=== PATIENT | female | born 1955 | race Caucasian/White ===

== ENCOUNTER → 2024-09-20 07:38 | Outpatient (CLI) | payer MEDICARE, OTHER, SELFPAY ==
[2024-09-20 08:24] LABS: Alanine Aminotransferase 60 IU/L (<35); Albumin 3.9 g/dL (3.5-5.0); Albumin Globulin Ratio 1.8 (1.0-2.8); Alkaline Phosphatase 44 U/L (38-126); Aspartate Aminotransferase 42 IU/L (14-36); Bilirubin Total 0.5 mg/dL (0.2-1.3); Blood Urea Nitrogen 19 mg/dL (7-17); Calcium 8.9 mg/dL (8.4-10.2); Carbon Dioxide 27 mmol/L (22-32); Chloride 105 mmol/L (98-107); Estimated Glomerular Filt Rate > 60 mL/min (>60); Globulin 2.2 g/dL (1.7-4.1); Glucose 92 mg/dL (70-99); HEMOLYSIS 21 (0-50); Potassium 4.5 mmol/L (3.4-5.1); Sodium 137 mmol/L (137-145); Total Protein 6.1 g/dL (6.3-8.2)
[2024-09-21 04:10] LABS: CRP, High Sensitivity 0.21 mg/L (0.00-3.00)
== END ==
PROVIDERS: PCP Family Medicine; Referring Provider Family Medicine; Visit Provider Family Medicine
DX: Z13.6 Encounter for screening for cardiovascular disorders (principal); Z82.49 Family history of ischemic heart disease and other diseases of the circulatory system
CPT/HCPCS: 36415; 80053; 80061; 83704; 86140

== ENCOUNTER → 2024-11-07 15:03 | Outpatient (CLI) | payer MEDICARE, OTHER, SELFPAY ==
[2024-11-07 16:45] LABS: Appearance Urine UA CLEAR; Bilirubin Urine UA NEGATIVE (NEGATIVE); Color Urine UA YELLOW; Glucose Urine UA NEGATIVE (Negative); Ketones Urine UA 1+ (NEGATIVE); Leukocyte Esterase Urine UA NEGATIVE (NEGATIVE); Nitrite Urine UA NEGATIVE (Negative); Protein Urine UA NEGATIVE (Negative); Specific Gravity Urine UA 1.020 (1.000-1.035); Urobilinogen Urine UA 1.0 E.U./dL (0.2)
[2024-11-07 17:01] LABS: pH Urine UA 6.5 (4.5-8.0)
[2024-11-07 17:13] LABS: Culture Indicated Urine Cult Not Indicated; Occult Blood Urine UA 3+ (Negative)
== END ==
PROVIDERS: PCP Family Medicine; Visit Provider Obstetrics & Gynecology Gynecology
DX: R32 Unspecified urinary incontinence (principal)
CPT/HCPCS: 81001

== ENCOUNTER → 2024-11-12 09:05 | Outpatient (CLI) | payer MEDICARE, OTHER, SELFPAY ==
--- NOTE | 2024-11-12 09:00 | DI.MG.S_ITS ---
MM screening mammo BI: 11/12/2024. BI-RADS: 1 CLINICAL: 69-year old female for bilateral screening mammogram. Tyrer-Cuzick lifetime risk of 6.3%. No personal or first-degree family history of breast cancer. PRIOR EXAMS 12/24/2022, outside films 02/19/2021, 09/13/2018, and 08/04/2017. MAMMOGRAPHY TECHNIQUE: 2D and 3D (tomosynthesis) digital mammographic views obtained, with additional images as needed for full coverage. Current study was also evaluated with a Computer Aided Detection (CAD) system. DENSITY C. The breasts are heterogeneously dense, which may obscure small masses. MAMMOGRAPHY FINDINGS Bilateral: No suspicious mass, asymmetry, microcalcification, or other abnormality seen. IMPRESSION: * No evidence of malignancy. RECOMMENDATIONS Bilateral * Annual screening mammography. OVERALL ASSESSMENT CATEGORY BI-RADS-1: Negative. The [employer] recommends annual screening mammography beginning at age 40 for women with average risk of breast cancer. ELECTRONICALLY SIGNED: Jennifer Johnson M.D. on 11/13/2024 at 12:58:04 AM PT Interpreting Station ID: [id number]
== END ==
LOC: MAMMO 09:07
PROVIDERS: PCP Family Medicine; Referring Provider Family Medicine; Visit Provider Family Medicine
DX: Z12.31 Encounter for screening mammogram for malignant neoplasm of breast (principal); R92.333 Mammographic heterogeneous density, bilateral breasts
CPT/HCPCS: 77063; 77067

== ENCOUNTER → 2024-12-19 09:48 | Outpatient (CLI) | payer MEDICARE, OTHER, SELFPAY ==
--- NOTE | 2024-12-19 09:50 | DI.RAD.S_ITS ---
PROCEDURE: XR DEXA AXIAL SKELETON INDICATIONS: screen COMPARISON: None. FINDINGS: Lumbar Spine: Bone mineral density 1.117 g/cm2, T score 0.9. Left Femoral Neck: Bone mineral density 0.701 g/cm2, T score -1.3. Left Hip: Bone mineral density 0.871 g/cm2, T score -0.6. Fracture Risk Calculation (when applicable): 10-year fracture risk of a major osteoporotic fracture 8.4 percent and of a hip fracture 0.9 percent. (T score greater or equal to -1.0 to: NORMAL) (T score from -1.1 to -2.4: OSTEOPENIA) (T score less than or equal to -2.5: OSTEOPOROSIS) IMPRESSION: Osteopenia--- recommend repeat DEXA in 2-3 years for reassessment. Follow-up guidelines as follows: Osteoporosis: Consider a repeat DEXA and Vertebral Fracture Assessment (VFA) exam in 2 years or sooner if medically necessary, to reassess this patient's status. Osteopenia: Consider a repeat DEXA in 2-3 years to reassess this patient's status, or if there is a new clinical indication. Normal: Consider a repeat DEXA in 5 years or sooner, or if there is a new clinical indication. All treatment decisions require clinical judgment and consideration of individual patient factors, including patient preferences, comorbidities, previous drug use, risk factors not captured in the FRAX model (e.g., frailty, falls, vitamin D deficiency, increased bone turnover, interval significant decline in bone density ) and possible under- or over-estimation of fracture risk by FRAX. In addition, the NOF Guide recommends that FDA-approved medical therapies be considered in postmenopausal women and men age >= 50 years with a: * Hip or vertebral (clinical or morphometric) fracture * T-score of <=-2.5 at the spine or hip * Ten-year fracture probability by FRAX of >= 3% for hip fracture or >=20% for major osteoporotic fracture. Dictated by: Johan Diaz M.D. on 12/19/2024 at 18:58 Approved by: Johan Diaz M.D. on 12/19/2024 at 18:59
== END ==
LOC: RAD 09:50
PROVIDERS: PCP Family Medicine; Referring Provider Family Medicine; Visit Provider Family Medicine
DX: M81.0 Age-related osteoporosis without current pathological fracture (principal)
CPT/HCPCS: 77080

== ENCOUNTER 2025-01-09 09:51 | Day surgery (SDC) | payer MEDICARE, OTHER, SELFPAY ==
--- NOTE | 2024-12-26 15:00 | P.HPOB_ITS ---
History of Present Illness History of Present Illness Narrative: Dorothy Llamas is a 69 year old female Date of procedure:?? 01-09-25 Preoperative diagnosis:? stress incontinence Planned Procedure:?? mid urethral sling, cystoscopy Postop Meds Tylenol 1000 mg, ?3 times a day? Motrin 400 mg 3 times a day Oycodone 5 mg,? take 1 pill every 4-6 hr as needed, # 5? Colace,? 1 pill BID, for constipation CC: Stress incontinence HPI: 69-year-old female who presents for evaluation of above complaint.?? She reports onset of symptoms 1-2 years ago.?? She considers this a? Moderate? problem. She reports worsening stress incontinence over the last 1-2 years. She reports several stress incontinence triggers, as listed below. She leaks 4 times per day. She has occasional urge incontinence. She does not use pads but has to change her clothes 1 to 2 times a day. Her job is very physically active and so she leaks lot because of that. She does not have hematuria or urinary tract infections no smoking. She has tried Kegel's, they do not work for her. She has tried oxybutynin XL 10 mg a day. This did not work. Exam below with a positive cough stress test confirming diagnosis of stress incontinence. She is interested in surgical treatment of her stress incontinence She had a prior surgery in [address] Kasia Nichlos at the [facility], [facility], open sacral colpopexy. This surgery is holding well for her. Recent pelvic exam demonstrated no prolapse. Today's exam shows no prolapse prior hyst -TOM CHANEY, with open ASC -x3 c-sec -0 Pelvic Floor Review of Systems: (HPI) Stress Urinary Incontinence symptoms (NO): 4 per day Triggers include:??? cough, sneeze, laugh, exercise, lifting, walking, standing ? Urge Incontinence symptoms (Urge UI): Occasional Triggers include:??? Full bladder with urge,?? running water,?? ? Pads: She wears no pads, changes clothes 1 or 2 times a day as noted above. Overactive Bladder symptoms (OAB):? ? Frequency:?? Every 2 hour Nocturia:?? Times 0 Urgency:?? No Prior incontinence treatment includes:? Medical:? Yes, failed Surgical:? No? Kegels:?? Yes Physical therapy:?No? Pessary:?No? Diet / Fluids: Fluid restriction:? No Excessive fluids:?No Pain symptoms:? Painful bladder:???No Dysuria:??? No Dyspareunia:? No Dysmenorrhea:? No Urinary Risk Factors UTI?s, recurrent:? No Hematuria:? No Kidney Stones:?No? Tobacco use:? No Pelvic Organ Prolapse (POP) symptoms:?? Bulge:?No Pressure and /or? Heaviness:?No Splint for defecation or voiding:???No Voiding dysfunction: Abnormal stream:? No Strain to void:? No Incomplete emptying:?No Voiding difficulty:? No Retention:??? No Bowel Function: Constipation:?No Strain to defecate:?No Fiber:?No Laxatives:?No Fecal Incontinence:? Liquid stool:? No Solid stool:?No?? Sexual function Sexually active: Not answered on questionnaire Incontinence with sex: Not answered on questionnaire ? General Review of Systems: Constitutional, CV, Endo, Musc-skel, Eyes, Cancer, Skin, Breast, GI, Heme/Lymph, Psych, Urinary, Neuro, Oncology Rep Specialist, Resp, Sexual:??? Pertinent positives listed above in HPI All others reviewed and negative. All reviewed on patient questionnaire.? . . PFSH Medical History Stress incontinence, female ADHD Toe pain (~2020) Chicken pox (~1963) Tinnitus (~2020) Hearing loss (~2020) Surgical History Anesthesia H/O right wrist surgery (~2017) History of hysterectomy (~2010) Family History Mother History of heart disease Mental health problem Tobacco & Substance Use Smoking Status: Never smoker alcohol intake: current (3 drinks per week ) substance use type: does not use Exam Vitals 11/07/2512:55 Height 5 ft 7 in Weight 142 lb 2 oz BMI 22.2 BP 115/72 Blood Pressure Location Lt radial Position Sitting Pulse 75 Pulse Source Monitor Temp 97.9 F Temp Source Temporal Artery Scan Pulse Oximetry (%) 95 Oxygen Delivery General: healthy, alert, coherent, no acute distress, cooperative, nontoxic Pulmonary: normal breathing, no distress Abdomen: soft, no mass, non-distended, no hernia, non-tender Skin: Scars on Abd: LT Vulva: Normal labia majora, labia minora, introitus, and clitoris, non-tender Urethra meatus: normal, no discharge Perineum: Normal, non-tender Urethra: No mass, non-tender Bladder: no mass, non-tender Vagina: No lesions, no discharge, mi atrophy, non-tender Prolapse none Levators: Non-tender, 2-3/ 5 kegel squeeze Hysterectomy Bimanual: no mass, no adnexal mass, non-tender Anus: No lesion, non-tender, no hemorrhoid Empty Cough Stress test: Positive PVR: 5 mL by catheter Urethral angle hypermobile: Yes POP-Q Exam: Aa: -2 Ba: -2 Ap: -2 Bp: -2 C: -9 D: Not applicable TVL: 11 GH: 2.5 PB: 3 Introitus size: 2 fingerbreadths Cystocele stage: 1.0 Rectocele stage: 1.0 Uterine/Vault Prolapse Stage: 0-1 Assessment & Plan (1) Stress incontinence, female: Assessment and Plan ? Patient counseled regarding above conditions.? Educational materials given to patient. 1. Stress Urinary Incontinence with urethral hypermobility:? This diagnosis was discussed with the patient. The etiology was explained. Treatment options were discussed including expectant management, pelvic floor exercises, pessary trial, and surgical intervention (mid-urethral sling, Gore urethropexy, P-V sling, Luly urethral plication, urethral bulking injection).? Risks and benefits of surgery were briefly outlined. We discussed that she is a candidate for a Midurethral Sling as treatment of her stress incontinence. Success rate of being dry from stress incontinence is about 80-85%; another 10-15% of patients are markedly improved but not cured;? 1-2% will fail, and 1-2% will need the sling cut because it is too tight.? The risk of temporary urinary retention requeiring temporary catheterization is about 15- 20%; risk of urinary retention requiring sling release procedure is about 1-2%, as noted above.? We discussed the small 1-3% of mesh erosion as well as the small risk of de kimberley urgency.? This procedure is not designed to treat Urge Incontinence symptoms; however, 30-50% of patients with overactive bladder/ urgency urinary incontinence will have improvement in these symptoms, in 30% these symptoms will stay the same, and in 20-30% these symptoms will worsen. she would like to proceed with surgery, we will schedule her for a sling see below for counseling Date of procedure:?? 01-09-25 Preoperative diagnosis:? stress incontinence Planned Procedure:?? mid urethral sling, cystoscopy Postop Meds Tylenol 1000 mg, ?3 times a day? Motrin 400 mg 3 times a day Oycodone 5 mg,? take 1 pill every 4-6 hr as needed, # 5? Colace,? 1 pill BID, for constipation Patient counseled extensively about the Risks, Benefits, and Alternatives to surgery.? She was offered the opportunity to ask any questions, and all questions were answered. ? Surgical Risks include: Bleeding, Hemorrhage, Transfusion, Infection (especially wound or bladder), Injury to adjacent organs (especially bladder, ureter, bowel, blood vessels, nerves), Postop or Chronic Pain, need for Reoperation, and Life-threatening event (especially M.I., CVA, PE, DVT). Procedure Risks include: Failure to Cure condition, Recurrence of condition months or years later, Urinary incontinence, Voiding dysfunction or Urinary Retention with prolonged catheter use, Poor wound healing, Erosions of any mesh or graft used, Dyspareunia, Vaginal scarring or narrowing, Need for additional surgery (immediate or delayed).? The expected cure and improvement and failure rates were discussed. Patient counseled to avoid the following for 6 weeks after surgery: (1) Impact sports (like running or jumping), walking and stairs OK (2) Lifting over 20# (3) Sexual intercourse No limits after 6 weeks. ? Good exercise tolerance, > 4 Mets. Her current medications were reviewed, and instructions given over which to use and which to discontinue before surgery.? Post-operative care instructions reviewed.? We discussed post-operative pain: Pain should be in the mild-moderate range, but can be moderate-severe for the first few days.?? Prescriptions will typically be given for (1) acetaminophen (Tylenol) and (2) non-steroidal anti-inflammatory drug (NSAID, like Motrin or Naprosyn), use both together, around the clock. Prescription will also be given for a (3) narcotic pain medication. Use the narcotic as needed, as a booster to the Tylenol and NSAID. You might need 0-4 narcotic pills a day typically. The narcotic will only be needed for a few days.?? Gradually use less of the narcotic, but continue the Tylenol and NSAID.? After a few days, the narcotic should no longer be needed, and only the Tyle nol and NSAID will be needed.? Warm packs or cold packs can also be used for pain.??Do not drive for as long as you are using the narcotic pain medication? - this should only be a few days.?? Constipation is associated with use of narcotic pain medications, and can be improved with use of a stool softener, or fiber, or a mild laxative.? If you are sent home from the hospital with a Rizzo Catheter in place:? please call the office on the day after surgery We will usually remove the catheter 2-4 days after surgery: a. You will perform an at home Rizzo catheter removal -or- b. You will come in to the office for a voiding trial, (For some unusual surgeries, we might leave the catheter in for up to 2 weeks, and then remove it.) Instructions for at home Rizzo catheter removal..... For at-home Rizzo catheter removal, this can be done on postop day 2 or 3 or 4, depending on various factors. 1. At 6 or 7 a.m., have the patient cut the Rizzo catheter with scissors, while standing in a shower or bath tub. a. Cut the catheter right in the middle of the tubing, about 6 inches from the body. b. The sterile water that is inside the Rizzo balloon will leak all over the floor of the shower or bath tub. This is expected. c. The catheter will either fall out of the urethra, or just gently pull on it and it will come out. 2. Now, the bladder will gradually fill up over the next few hours. 3. Go ahead and empty the bladder when you feel an urge to void. Please note how strong the urine stream is. a. If the urine stream is normal or close to normal, then everything is good to go. b. If the urine stream is slow or you can not void, then return to the clinic in the afternoon. We will place another Rizzo catheter. We will repeat the voiding trial in 3-4 days. All of her questions were answered Vipin Jerez MD UroGynecology & Pelvic Reconstructive Surgery [facility] Medical History (Updated 12/21/24 @ 13:19 by Ruby Knott DO) Hearing loss (~2020) Psoas syndrome Stress incontinence, female ADHD Toe pain (~2020) Chicken pox (~1963) Tinnitus (~2020) Surgical History (Updated 08/24/24 @ 17:25 by Ruby Knott DO) Anesthesia H/O right wrist surgery (~2017) History of hysterectomy (~2010) Family History (Updated 05/11/24 @ 18:00 by Eve Barksdale) Mother History of heart disease Mental health problem Social History alcohol intake: current (3 drinks per week ) substance use type: does not use Meds Home Medications and Allergies Home Medications ?Medication ?Instructions ?Recorded ?Confirmed ?Type magnesium glycinate 100 mg (as 200 mg PO DAILY 5 11/22/24 History glycinate) tablet estradiol 0.01% (0.1 mg/gram) 1 g vaginal 2XW #42.5 gr ams 11/22/24 11/22/24 Rx vaginal cream progesterone micronized 100 mg 100 - 400 mg (1 - 4 x 1 00 mg) PO 11/22/24 11/22/24 Rx capsule BEDTIME #90 caps estradiol 0.025 mg/24 hr weekly 1 patch transdermal QW NORTHWAY #4 ea 12/20/24 Rx transdermal patch Allergies Allergy/AdvReac Type Severity Reaction Status Date / Time No Known Drug Allergies Allergy Verified 11/07/24 13:53 Assessment & Plan Time-Based Coding :: [TOTAL MINUTES] spent with patient and on the chart (including review of chart, obtaining history, exam, reviewing outside data, placing orders, documenting exam and treatment plan, and counseling patient) on [DATE].
[2025-01-03 14:28] VITALS: BMI 22.2
[2025-01-09 11:32] VITALS: BP 119/72; PULSE 56; RESP 16; TEMP 36.3; O2SAT 99; BMI 22.6
[2025-01-09] MEDS: LACTATED RINGERS 1,000 ML 42 ML IV ×3 (11:45→15:04)
[2025-01-09] MEDS: ACETAMINOPHEN 325 MG TABLET 975 MG PO (13:57)
[2025-01-09] MEDS: GABAPENTIN 300 MG CAPSULE PO (13:57)
--- NOTE | 2025-01-09 13:57 | PM.PREOP ---
Pre-operative Note Interval Note History & Physical reviewed/Exam performed by Physician: Yes Changes to H&P: No
[2025-01-09] MEDS: LIDOCAINE 1% W/EPI 10ML 20 ML INJ (14:53)
--- NOTE | 2025-01-09 14:58 | SUR.OPER ---
Lithotomy on padded OR bed, head on pillow, arms secured on padded arm boards at <90 degrees abduction. Legs secured in padded yellow fins stirrups.
[2025-01-09 15:25] VITALS: BP 117/64; PULSE 71; RESP 15; TEMP 36.3; O2SAT 98
[2025-01-09 15:30] VITALS: BP 126/83; PULSE 73; RESP 13; O2SAT 96
--- NOTE | 2025-01-09 15:34 | P.OP_ITS ---
Operative Date/Time/Diagnoses Date of procedure: 01/09/25 Time of procedure: 15:00 Pre-op diagnosis: Stress incontinence Post-op diagnosis: same Procedure & Clinicians Procedure: Procedures Operation Date: 01/09/25 11:15 Actual Procedure Side Surgeon p mid urethral sling, cystoscopy Vipin Jerez MD Operative Notes Findings: Operative Note Surgeon:? Vipin Jerez MD Clinic Office Assistant:?? none Pre-Op Diagnosis:?? Stress incontinence Post-Op Diagnosis:?? Same? Procedure:?? TVT mid-urethral sling, cystoscopy Findings (brief): ? 1.? TVT sling placed at mid-urethra, tension-free ? 2.? Cystoscopy with normal bladder, ureters, urethra, no trocar injury Date of Surgery:? January 09, 2025 Complications:? None Specimens:? None Anesthesia Technique:?? General endotracheal Estimated Blood Loss (mls):? 25 Blood Replacement (mls):? None Drains:? None Condition:? Stable Procedure in detail: After consent was confirmed, the patient was taken to the operating room and placed under general anesthesia without incident.? Sequential compression devices were in place and active.? She received perioperative antibiotics.? She was then prepped and draped in the usual sterile fashion after placement in the dorsal lithotomy position using the Michael stirrups.? A Rizzo catheter was placed.? With the Rizzo catheter in place, the anterior vaginal mucosa beneath and lateral to the urethra was injected with 10-20 cc of? 0.5% lidocaine / epinephrine 1:200,000.? A 2-3 cm midline incision was made at the level of the midurethra with a scapel. Metzenbaum scissors were used to dissect the vagina from the urethra and then create tunnels beneath the vaginal mucosa up toward the pubic bone on each side.? A marking pen was used to harleen the skin just above the pubic bone and 2 cm from the midline bilaterally, and two small 8-10 mm incisions were made on the suprapubic skin.? The trocar was passed from the right vaginal tunnel, behind the pubic bone, to the right suprapubic incision, and this was repeated on the left side.? The Rizzo catheter was removed, and cystoscopy was performed with a 70 degree lens. There was no trocar injury, and the bladder, ureters, and urethra were normal.? The Rizzo catheter was reinserted.? The sling was pulled into position in a tension-free manner, and a Luly clamp was easily passed between the sling and the urethra.? The plastic sheaths were removed to anchor the sling, and tension was checked again. The ends of the sling were trimmed just below the skin, and the skin incisions were cleaned and closed with dermabond. The vaginal incision was closed with 2-0 vicryl in a running fashion. Sponge, needle and instrument count was correct.? The patient tolerated the procedure well and was taken to the recovery room in stable condition. Vipin Jerez MD UroGynecology & Pelvic Reconstructive Surgery [place], [place] Applied: implant(s) (tvt sling )
[2025-01-09 15:35] VITALS: BP 122/67; PULSE 67; RESP 12; O2SAT 96
[2025-01-09 15:40] VITALS: BP 122/66; PULSE 68; RESP 14; TEMP 36.6; O2SAT 95
[2025-01-09 16:10] VITALS: BP 119/72; PULSE 56; RESP 16; TEMP 36.2; O2SAT 99
== END 2025-01-09 16:09 | disposition home or self-care (01) ==
PROVIDERS: PCP Family Medicine; Referring Provider Obstetrics & Gynecology Gynecology; Visit Provider Obstetrics & Gynecology Gynecology
PROC: 0TSD0ZZ Reposition Urethra, Open Approach (ICD-10-PCS; CPT 57288; principal; 2025-01-09 11:15)
DX: N39.3 Stress incontinence (female) (male) (principal)
CPT/HCPCS: 57288; C1771; J0330; J0689; J1100; J2405; J2704; J3010; J7120